=== PATIENT | female | born 1975 | race Caucasian/White ===

== ENCOUNTER 2016-09-24 11:37 | Emergency (ER) | payer OTHER ==
[~2016-09-24] VITALS: Ht 160 cm; Wt 71.4 kg
[2016-09-24 11:39] VITALS: BP 117/63; PULSE 106; RESP 12; O2SAT 100
--- NOTE | 2016-09-24 11:50 | ED.REPORT ---
HPI-General Illness Date of Service Sep 24, 2016 ED Provider: Torsten García MD The patient is a 40 year old female with history of Tracey Parkinson white s/p ablation, who presents to the emergency department complaining of heart "fluttering" that began last night around 1700. She states she feels "uneasy." and lightheaded with activity. She had similar symptoms 1 year ago but she remembers feeling better with activity. She denies chest pain, shortness of breath, cough, nausea, diaphoresis, stress, weight loss or sleep problems. She drinks 1 cup of coffee every morning. Nursing Notes Stated Complaint: arrhythmia Chief Complaint: Dysrhythmia/Cardiac Nursing Notes Reviewed: Yes Allergies: Coded Allergies: Sulfa (Sulfonamide Antibiotics) (Verified Allergy, Unknown, 09/24/16) General Time Seen by MD: 11:46 Chief Complaint Other (heart fluttering) Hx Obtained From: Patient Arrived By: Walk-in Sudden in Onset?: Yes Onset Occurred: 17 - 20 hours ago Symptom Duration: Since onset Severity: Current: No pain currently Severity: Maximum: No pain Recent Healthcare: No recent doctor visit, No recent hospitalization Similar Sx Previous: Yes Past Medical History Past Medical History Hx of tracey parkinson white s/p ablation Past Surgical History Cardiac ablation in 1995 Family History Noncontributory Social History Other Social History: Local resident Ambulatory Status Independent Review of Systems Full Review of Systems Constitutional: Denies: Recent wt loss Respiratory: Denies: Non-productive cough Cardiovascular: Reports: Palpitations, Denies: Chest pain GI: Denies: Nausea Skin: Denies Diaphoresis Neurologic: Reports: Lightheaded Psychiatric: Denies: Stress Complete sys rev & neg: except as marked. Physical Exam Vital Signs Vital Signs Date Time Temp Pulse Resp B/P Pulse Ox O2 Delivery O2 Flow Rate FiO2 09/24/16 11:39 36.5 106 12 117/63 100 Room Air Initial VS: Reviewed Head / Eyes: Atraumatic, Normocephalic, PERRL ENT: Mucous membranes moist, Conjunctiva normal, No scleral icterus Neck: Supple, Non-tender, Full range of motion Abdomen / GI: Soft, Non-tender, No guarding, No rebound, No distention Lymphatic: No lymphadenopathy Extremities: Vascular intact, Neuro intact, No swelling, No tenderness Skin: Warm, Dry, No cyanosis Neurologic: Alert, Oriented, Nonfocal Psychiatric: Mood/affect normal, Behavior normal, Normal thought content General/Constitutional: Awake, Alert, Well appearing Respiratory / Chest: Atraumatic, Breath sounds NL, Breath sounds = bilat, No respiratory distress, No rales, No rhonchi, No wheezing Cardiovascular: Heart rate NL, Regular rhythm, Heart sounds NL, No murmurs, No rubs, Cap refill not delayed, Peripheral circulation NL Lower Extremity / Pelvis / MS: No swelling, Non-tender, Neurologic intact, Vascular intact, No edema No calf swelling or tenderness Interpretation & Diagnostics Lab Results Interpretation Result Diagram: 09/24/16 1210 09/24/16 1210 Test 09/24/16 12:10 09/24/16 12:40 White Blood Count 6.3th/mm3 (3.8-10.1) Red Blood Count 4.51mil/mm3 (3.90-5.20) Hemoglobin 13.7g/dL (12.0-15.6) Hematocrit 40.3% (35.0-46.0) Mean Corpuscular Volume 89.4fL (81-100) Mean Corpuscular Hemoglobin 30.4pg (27.0-35.0) Mean Corpuscular Hemoglobin Concent 34.0% (32.0-37.0) Red Cell Distribution Width 12.3% (12.3-15.4) Platelet Count 209bil/L (150-400) Neutrophils (%) (Auto) 61.8% (40-74) Lymphocytes (%) (Auto) 27.9% (14-46) Monocytes (%) (Auto) 7.5% (4-12) Eosinophils (%) (Auto) 2.1% (0-5) Basophils (%) (Auto) 0.5% (0-3) Sodium Level 139mEq/L (134-144) Potassium Level 3.6mEq/L (3.5-5.2) Chloride Level 102mEq/L (97-108) Carbon Dioxide Level 23mmol/L (18-29) Blood Urea Nitrogen 11mg/dL (6-24) Creatinine 0.58mg/dL (0.57-1.00) Estimat Glomerular Filtration Rate 163mL/min (>59) Glucose Level 90mg/dL (60-99) Calcium Level 9.7mg/dL (8.5-10.1) Magnesium Level 2.0mg/dL (1.6-2.6) Total Bilirubin 0.6mg/dL (0.0-1.2) Aspartate Amino Transf (AST/SGOT) 21U/L (0-50) Alanine Aminotransferase (ALT/SGPT) 14U/L (0-32) Alkaline Phosphatase 58U/L (25-150) Total Protein 8.1g/dL (6.4-8.4) Albumin 5.0g/dL (3.4-5.0) Thyroid Stimulating Hormone (TSH) 1.720uIU/mL (0.450-4.500) ECG Interpretation ECG Interpretation: Sinus rhythm with a rate of 86 bpm Normal axis Normal intervals No delta wave appreciated No ST segment changes Frequent PACs present No prior for comparison Time: 12:14 Interpreted by: ED physician Rhythm Strip Interpretation : Rhythm Strip Interpretation: PACs seen on monitor while in the room Time: 12:00 Rhythm Strip Interpretation: Interpreted by me X-Ray Chest Interpretation Chest Xray Interpretation: IMPRESSION: No acute process. Dictated by: Tao Adan M.D. 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 Upon arrival she is afebrile and he wanted to be stable. She is in no apparent distress. She reports ongoing sensation of palpitations and on continuous cardiac monitoring has occasional PACs were otherwise normal rhythm strip. History the emergency department the patient was treated with IV fluids and maintained on continuous cardiac monitoring pulse oximetry. She had no arrhythmias other than occasional PACs despite reporting ongoing sensation of palpitations. Laboratory studies were notable as below: CBC unremarkable, CMP unremarkable, TSH is WNL Patient remained comfortable and in no apparent distress. EKG was obtained and interpreted by myself as documented above demonstrated sinus rhythm with occasional poor PACs, no delta waves and otherwise was unremarkable. Patient was discussed with cardiology Dr. Bucio who felt that no further workup was immediately indicated. He recommended the patient be discharged and follow up on an outpatient basis with Dr. Wagner. At this time I see no evidence of significant or concerning arrhythmia, thyroid disease or electrolyte abnormalities. I feel that the patient is appropriate for discharge home and follow-up on an outpatient basis. Follow up and return precautions were given in detail the patient verbalized understanding and agreement with the plan. Source of Hx: Old records Time of Eval: 13:06 Re-Evaluation/Progress Note: Rechecked the patient. Discussed workup results, diagnosis, and plan for discharge with outpatient followup. All questions were addressed. Consultation : Referral / Consult Name: Trista Bucio MD Consulted With: Cardiology Requested Call at: 12:59 Call Returned at: 13:02 Gill Net Stringer: Agrees with eval, Agrees with plan Note: He agrees with plan for discharge and outpatient followup. Counseled Regarding: Diagnosis, Lab results, Need for follow-up, When/why to return to ED Discharge & Departure Primary Impression: Palpitations Additional Impressions: History of Rxoxm-Uluscahje-Xvpkz (WPW) syndrome H/O cardiac radiofrequency ablation Disposition: Home Discharge Condition All VS Reviewed: Yes Condition: Stable Additional Instructions: Thank you for seeking care at the emergency room. Our primary goal today in the ED was to evaluate you for any life-threatening conditions. Your evaluation was reassuring. You should follow-up with a parts lister in the next few days. We have given you a referral to Dr. Wagner. Call his office tomorrow to schedule an appointment. You should return to the ED immediately if you develop increased pain, shortness of breath, dizziness, lightheadedness, weakness or any other concerning signs or symptoms. Thank you for letting us partake in your care today. Referrals: Sophie Arthur (PCP) Juvenal Wagner MD Attestation Portions of this note were transcribed by Kathie Jules. I, Dr. García personally performed the history, physical exam and medical decision-making; I reviewed and confirmed the accuracy of the information in the transcribed note. Signed by: Christian Navarro, 09/24/2016 and 1310. copies to: Sophie Arthur; Juvenal Wagner MD, Beck O MD Sep 24, 2016 11:50 Kathie Jules Sep 24, 2016 12:04
[2016-09-24] MEDS ORDERED: 0.9% Sodium Chloride 1,000 ML IV ONE (12:05)
[2016-09-24 12:23] LABS: BASOPHILS % (AUTO) 0.5 % (0-3); EOSINOPHILS % (AUTO) 2.1 % (0-5); MONOCYTES % (AUTO) 7.5 % (4-12); Mean Corpuscular Hemoglobin 30.4 pg (27.0-35.0); Mean Corpuscular Volume 89.4 fL (81-100); NEUTROPHILS % (AUTO) 61.8 % (40-74); Platelet Count 209 bil/L (150-400)
--- NOTE | 2016-09-24 12:30 | DRSVH ---
PROCEDURE: X-RAY CHEST, TWO VIEWS ([id number]) INDICATIONS: palpitations TECHNIQUE: 2 views of the chest were acquired. COMPARISON: None. FINDINGS: Surgical changes and devices: None. Lungs and pleura: No pleural effusions or pneumothorax. Lungs are clear. Mediastinum: Mediastinal contours are normal. Heart size is normal. Bones and chest wall: No suspicious bony abnormalities. Soft tissues appear unremarkable. IMPRESSION: No acute process. Dictated by: Tao Adan M.D. on 09/24/2016 at 12:28 Approved by: Tao Adan M.D. on 09/24/2016 at 12:28
== END 2016-09-24 13:21 | disposition home or self-care (01) ==
LOC: SED 11:37
DX: R00.2 Palpitations (principal); R42 Dizziness and giddiness; Z86.79 Personal history of other diseases of the circulatory system; Z98.890 Other specified postprocedural states; Z88.2 Allergy status to sulfonamides
CPT/HCPCS: 36415; 71020; 80053; 81025; 83735; 84443; 85025; 93005; 96360; 99285; J7030